=== PATIENT | female | born 1995 | race American Indian/Alaskan Native ===

== ENCOUNTER 2016-07-30 11:39 | Emergency (ER) | payer MEDICAID ==
[~2016-07-30] VITALS: Ht 165.1 cm; Wt 112.3 kg
[~2016-07-30 11:39] MED LIST: DOCU-30 PO; FLUO10CA7 PO; HYDR-3138 PO; IBUP-1222 PO; OXYC5TAB3 PO; PNV1TABL4 PO
[2016-07-30] MEDS ORDERED: MECLIZINE CHEWABLE 25 MG TAB PO ONE (13:00)
[2016-07-30] MEDS ORDERED: MECLIZINE CHEWABLE 25 MG TAB ONE (13:10)
[2016-07-30 13:17] LABS: HEMOGLOBIN 12.9 g/dL (11.7-16.4)
[2016-07-30 13:28] LABS: ASPARTATE AMINO TRANSFERASE 4 U/L (15-37); BLOOD UREA NITROGEN 7 mg/dL (7-18)
[2016-07-30 13:36] LABS: IS PT STATUS REG ER OR PRE ER? YES
[2016-07-30] MEDS ORDERED: SODIUM CHLORIDE 0.9% 1,000ML IVBOLUS ONE (14:00)
[2016-07-30] MEDS ORDERED: SODIUM CHLORIDE FLUSH 10ML SYR IVF ONE (14:00)
[2016-07-30 15:16] VITALS: BP 136/81
== END 2016-07-30 15:18 | disposition home or self-care (01) ==
LOC: ED 15:07
DX: R55 Syncope and collapse (principal); R81 Glycosuria; E86.0 Dehydration
CPT/HCPCS: 36415; 80053; 80329; 81003; 84484; 85025; 93005; 96360; 99285; J7030; G0480

== ENCOUNTER 2016-08-24 19:29 | Outpatient (CLI) | payer MEDICAID ==
[~2016-08-24] VITALS: Ht 162.6 cm; Wt 114.0 kg
== END 2016-08-24 20:55 | disposition home or self-care (01) ==
LOC: LDOP 19:29
PROVIDERS: ATTEND Student in an Organized Health Care Education/Training Program
DX: O62.9 Abnormality of forces of labor, unspecified (principal); O36.8130 Decreased fetal movements, third trimester, not applicable or unspecified; O10.913 Unspecified pre-existing hypertension complicating pregnancy, third trimester; Z3A.31 31 weeks gestation of pregnancy
CPT/HCPCS: 36415; 59025; 81003; 82731; 82962; 87081; 87086; 99211; G0463

== ENCOUNTER 2016-09-06 20:57 | Outpatient (CLI) | payer MEDICAID ==
[~2016-09-06] VITALS: Ht 162.6 cm; Wt 115.0 kg
[2016-09-06] MEDS ORDERED: ASPI-496 PO (22:37)
[2016-09-06] MEDS ORDERED: DIPHENHYDRAMINE 25 MG CAPSULE ONE (22:43)
[2016-09-06] MEDS ORDERED: DIPHENHYDRAMINE 50 MG CAPSULE PO PRN (23:00)
== END 2016-09-06 22:55 | disposition home or self-care (01) ==
LOC: LDOP 20:57
PROVIDERS: ATTEND Student in an Organized Health Care Education/Training Program
DX: O62.9 Abnormality of forces of labor, unspecified (principal); O10.913 Unspecified pre-existing hypertension complicating pregnancy, third trimester; Z3A.33 33 weeks gestation of pregnancy
CPT/HCPCS: 59025; 99211; G0463

== ENCOUNTER 2016-09-14 13:46 | Observation (INO) | payer MEDICAID ==
[~2016-09-14] VITALS: Ht 165.1 cm; Wt 124.0 kg
[~2016-09-14 13:46] MED LIST changes: +ASPI-496 PO
[2016-09-14 14:31] VITALS: BP 141/75
[2016-09-14 14:50] VITALS: BP 139/93
[2016-09-14 15:27] LABS: BLOOD UREA NITROGEN 10 mg/dL (7-18)
[2016-09-14 15:31] LABS: ASPARTATE AMINO TRANSFERASE 13 U/L (15-37)
== END 2016-09-14 17:17 | disposition home or self-care (01) ==
LOC: EDIP 13:46 → UNDOADMOB 13:46 → LDIP 13:49
PROVIDERS: ADMIT Student in an Organized Health Care Education/Training Program; ATTEND Student in an Organized Health Care Education/Training Program
DX: O10.913 Unspecified pre-existing hypertension complicating pregnancy, third trimester (principal); Z3A.36 36 weeks gestation of pregnancy
CPT/HCPCS: 36415; 59025; 76815; 80053; 81001; 81050; 82248; 82570; 84156; 84550; 85025; 87086; 99211; G0378; G0463

== ENCOUNTER 2016-09-15 14:57 | Outpatient (CLI) | payer MEDICAID ==
[2016-09-15 16:45] VITALS: BP 145/87
== END 2016-09-15 17:04 | disposition home or self-care (01) ==
LOC: LDOP 14:57
PROVIDERS: ATTEND Student in an Organized Health Care Education/Training Program
DX: O10.913 Unspecified pre-existing hypertension complicating pregnancy, third trimester (principal); O99.343 Other mental disorders complicating pregnancy, third trimester; F32.9 Major depressive disorder, single episode, unspecified; Z3A.35 35 weeks gestation of pregnancy
CPT/HCPCS: 59025; 99211; G0463

== ENCOUNTER 2016-09-17 18:32 | Inpatient (IN) | payer MEDICAID ==
[~2016-09-17] VITALS: Ht 162.6 cm; Wt 123.6 kg
[2016-09-17 19:13] VITALS: BP 165/91
[2016-09-17] MEDS ORDERED: LABETALOL 5MG/ML, 20ML ONE (19:34)
[2016-09-17] MEDS ORDERED: LABETALOL 5MG/ML, 20ML IVPush STA (19:35)
[2016-09-17 20:23] LABS: ASPARTATE AMINO TRANSFERASE 11 U/L (15-37); BLOOD UREA NITROGEN 8 mg/dL (7-18)
[2016-09-17] MEDS ORDERED: MORPHINE SULFATE 4 MG/ML, 1ML ONE (21:17)
[2016-09-17] MEDS: MORPHINE SULFATE 4 MG/ML, 1ML IVPush PRN ×2 (21:20→21:59)
[2016-09-17] MEDS ORDERED: LACTATED RINGERS 1,000 ML IV PRN (22:36)
[2016-09-17] MEDS ORDERED: MAGNESIUM SULF. PMX 20GM/500ML 500 ML IV PRN (22:36)
[2016-09-17] MEDS ORDERED: MAGNESIUM SULF. PMX 20GM/500ML 500 ML IV ONE (22:41)
[2016-09-17] MEDS ORDERED: MAGNESIUM SULFATE PMX 4GM/100M 100 ML IVPB ONE (23:00)
[2016-09-17] MEDS ORDERED: NEWBORN KIT ONE (23:48)
[2016-09-18] MEDS ORDERED: OXYTOCIN 30U/ 0.9% NaCL 500ML 500 ML IV SCH (00:17)
[2016-09-18] MEDS ORDERED: LACTATED RINGERS 1,000 ML IV SCH ×2 (00:17→01:00)
[2016-09-18] MEDS ORDERED: ONDANSETRON 2MG/ML, 2ML ONE ×3 (00:21→14:20)
[2016-09-18] MEDS ORDERED: LACTATED RINGERS 1,000 ML IVBOLUS ONE (00:30)
[2016-09-18] MEDS ORDERED: SODIUM CITRATE/CITRIC ACID 30 ML UDC PO ONE (00:30)
[2016-09-18] MEDS ORDERED: ONDANSETRON 2MG/ML, 2ML IVPush ONE (00:30)
[2016-09-18] MEDS ORDERED: morphine SULFATE/PF 0.5 MG/ML, 10ML ONE (00:31)
[2016-09-18] MEDS ORDERED: SODIUM CITRATE/CITRIC ACID 30 ML UDC ONE (01:24)
[2016-09-18] MEDS ORDERED: OXYTOCIN 30U/ 0.9% NaCL 500ML 500 ML ONE (01:24)
[2016-09-18] MEDS ORDERED: METOCLOPRAMIDE 5 MG/ML, 2ML ONE (01:24)
[2016-09-18] MEDS ORDERED: EPHEDRINE 50 MG/ML, 1ML ONE (01:49)
[2016-09-18] MEDS ORDERED: CEFAZOLIN 1,000 MG ONE (01:49)
[2016-09-18] MEDS ORDERED: PHENYLEPHRINE 10 MG/ML ONE (01:49)
[2016-09-18] MEDS ORDERED: SIMETHICONE 80 MG CHEW TAB PO PRN (03:00)
[2016-09-18] MEDS ORDERED: METOCLOPRAMIDE 5 MG/ML, 2ML IV PRN (03:00)
[2016-09-18] MEDS: OXYTOCIN 30U/ 0.9% NaCL 500ML 500 ML IV SCH ×3 (03:00→23:00)
[2016-09-18] MEDS: LACTATED RINGERS 1,000 ML IV SCH ×6 (03:00→23:00)
[2016-09-18] MEDS ORDERED: ACETAMINOPHEN 325 MG TABLET PO PRN ×2 (03:00)
[2016-09-18] MEDS ORDERED: CALCIUM CARBONATE 500 MG TAB.CHEW PO PRN (03:00)
[2016-09-18] MEDS ORDERED: OXYcodone IR 5MG TABLET PO PRN ×2 (03:00)
[2016-09-18] MEDS ORDERED: ONDANSETRON 2MG/ML, 2ML IV PRN ×2 (03:00→04:00)
[2016-09-18] MEDS ORDERED: MISOPROSTOL 200 MCG TABLET PR PRN (03:00)
[2016-09-18] MEDS ORDERED: morphine SULFATE 10 MG/ML, 1ML IVPush PRN ×2 (03:00)
[2016-09-18] MEDS ORDERED: IBUPROFEN 600 MG TABLET PO PRN (03:00)
[2016-09-18] MEDS ORDERED: DOCUSATE 100 MG CAPSULE PO PRN (03:00)
[2016-09-18] MEDS ORDERED: HYDROmorphone 1 MG/ML, 1ML ONE (03:30)
[2016-09-18] MEDS: HYDROmorphone 1 MG/ML, 1ML IV PRN ×3 (03:52→04:17)
[2016-09-18] MEDS ORDERED: ONDANSETRON 2MG/ML, 2ML IVPush PRN (04:00)
[2016-09-18] MEDS ORDERED: FENTANYL PF 100 MCG/2ML IV PRN (04:00)
[2016-09-18] MEDS ORDERED: HYDROmorphone 2 MG/ML, 1ML IV PRN (04:00)
[2016-09-18] MEDS ORDERED: FENTANYL PF 100 MCG/2ML IVPush PRN (04:00)
[2016-09-18] MEDS ORDERED: HYDROmorphone 1 MG/ML, 1ML IVPush PRN (04:00)
[2016-09-18] MEDS ORDERED: OXYcodone 5 MG/5 ML ORAL.SOL UDC PO PRN ×2 (04:00)
[2016-09-18] MEDS ORDERED: NALOXONE 0.4 MG/ML, 1ML IV PRN (04:00)
[2016-09-18] MEDS ORDERED: DIPHENHYDRAMINE 50 MG/ML, 1ML IV PRN (04:00)
[2016-09-18] MEDS ORDERED: KETOROLAC 30 MG/1 ML IVPush SCH (04:00)
[2016-09-18] MEDS ORDERED: LABETALOL 5MG/ML, 20ML IVPush PRN (04:30)
[2016-09-18] MEDS ORDERED: PROMETHAZINE 25 MG/ML, 1ML IM ONE (04:30)
[2016-09-18] MEDS ORDERED: FENTANYL PF 100 MCG/2ML ONE (04:43)
[2016-09-18] MEDS ORDERED: PROMETHAZINE 25 MG/ML, 1ML ONE (04:43)
[2016-09-18 07:56] VITALS: BP 141/82
[2016-09-18] MEDS ORDERED: PRENATAL VIT/IRON/FA 1 EACH TABLET PO SCH (09:00)
[2016-09-18] MEDS ORDERED: PRENATAL VIT/IRON/FA 1 EACH TABLET ONE (09:44)
[2016-09-18] MEDS ORDERED: MAGNESIUM SULF. PMX 20GM/500ML 500 ML IV ONE ×2 (09:47→17:40)
[2016-09-18] MEDS: MAGNESIUM SULF. PMX 20GM/500ML 500 ML IV PRN ×2 (09:51→17:43)
[2016-09-18] MEDS ORDERED: OXYcodone/APAP 5/325MG TABLET ONE ×2 (14:11→21:00)
[2016-09-18] MEDS: OXYcodone/APAP 5/325MG TABLET PO PRN ×2 (14:14→21:04)
[2016-09-18 14:27] VITALS: BP 142/89
[2016-09-18 23:00] VITALS: BP 135/89
[2016-09-19] MEDS: OXYcodone/APAP 5/325MG TABLET PO PRN ×5 (01:06→19:50)
[2016-09-19 04:00] VITALS: BP 136/84
[2016-09-19 08:00] VITALS: BP 144/90
[2016-09-19] MEDS ORDERED: MISOPROSTOL 200 MCG TABLET PR PRN (09:30)
[2016-09-19] MEDS ORDERED: ACETAMINOPHEN 325 MG TABLET PO PRN (09:30)
[2016-09-19] MEDS ORDERED: BISACODYL 10 MG SUPP PR PRN (09:30)
[2016-09-19] MEDS ORDERED: OXYcodone/APAP 5/325MG TABLET PO PRN (09:30)
[2016-09-19 14:00] VITALS: BP 133/86
[2016-09-19] MEDS: IBUPROFEN 600 MG TABLET PO PRN ×2 (15:07→21:53)
[2016-09-19 20:40] VITALS: BP 146/87
[2016-09-19] MEDS: DOCUSATE 100 MG CAPSULE PO PRN (21:52)
[2016-09-19 23:50] VITALS: BP 134/86
[2016-09-20] MEDS: OXYcodone/APAP 5/325MG TABLET PO PRN ×4 (01:05→23:35)
[2016-09-20 04:45] VITALS: BP 138/90
[2016-09-20] MEDS: IBUPROFEN 600 MG TABLET PO PRN ×3 (04:50→18:20)
[2016-09-20] MEDS: OXYcodone IR 5MG TABLET PO PRN ×2 (04:51→09:25)
[2016-09-20 08:00] VITALS: BP 132/83
[2016-09-20] MEDS ORDERED: PRENATAL VIT/IRON/FA 1 EACH TABLET PO SCH (09:00)
[2016-09-20] MEDS: DOCUSATE 100 MG CAPSULE PO PRN ×2 (09:25→23:33)
[2016-09-20 12:40] VITALS: BP 141/86
[2016-09-20 16:08] VITALS: BP 147/93
[2016-09-20 19:20] VITALS: BP 141/91
[2016-09-20 23:35] VITALS: BP 137/92
[2016-09-21] MEDS: IBUPROFEN 600 MG TABLET PO PRN ×2 (01:14→08:33)
[2016-09-21 05:45] VITALS: BP 138/89
[2016-09-21 08:30] VITALS: BP 141/94
[2016-09-21] MEDS: DOCUSATE 100 MG CAPSULE PO PRN (08:33)
[2016-09-21] MEDS ORDERED: OXYC-302 PO (10:58)
[2016-09-21] MEDS ORDERED: DOCU-30 PO (10:59)
[2016-09-21] MEDS ORDERED: DIPH,PERTUSS(ACELL),TET VAC/PF NC IM-VACC ONE ×2 (11:39)
== END 2016-09-21 12:24 | disposition home or self-care (01) | DRG 765 ==
LOC: LDOP 18:32 → LDIP 22:44 → 2NE 09-18 03:24 → 2NW 09-18 23:10
PROVIDERS: ADMIT Student in an Organized Health Care Education/Training Program; ATTEND Student in an Organized Health Care Education/Training Program
PROC: 10D00Z1 Extraction of Products of Conception, Low, Open Approach (ICD-10-PCS; principal; 2016-09-18)
DX: O13.4 Gestational [pregnancy-induced] hypertension without significant proteinuria, complicating childbirth (principal); Z68.42 Body mass index [BMI] 45.0-49.9, adult; Z37.0 Single live birth; O99.214 Obesity complicating childbirth; E66.9 Obesity, unspecified; O16.4 Unspecified maternal hypertension, complicating childbirth; Z3A.35 35 weeks gestation of pregnancy; O36.60X0 Maternal care for excessive fetal growth, unspecified trimester, not applicable or unspecified; O36.63X0 Maternal care for excessive fetal growth, third trimester, not applicable or unspecified; O34.211 Maternal care for low transverse scar from previous cesarean delivery; O14.14 Severe pre-eclampsia complicating childbirth; O60.14X0 Preterm labor third trimester with preterm delivery third trimester, not applicable or unspecified
CPT/HCPCS: 36415; 80053; 81003; 82248; 82962; 83735; 84550; 85025; 86850; 86900; J0690; J1170; J2274; J2405; J2550; J3010; J2370; J2590; J3475; J7120